=== PATIENT | male | born 1985 | race African-American/Black ===

== ENCOUNTER 2016-07-10 10:04 | Emergency (ER) | payer SELFPAY ==
[2016-07-10 10:11] VITALS: BP 146/93
[2016-07-10] MEDS ORDERED: DIPH/PERTUSS(ACELL)/TETANUS VAC/PF 0.5 ML SYR (>=10YO) IM ONE (10:31)
--- NOTE | 2016-07-10 10:36 | ER Document Report ---
HPI - HPI Patient complains to provider of: dog bite Onset: Just prior to arrival Onset/Duration: Sudden Quality of pain: No pain Pain Level: 0 Context: Patient presents to the emergency department via EMS after he was bit by a dog. He reports that he was walking down the street when a dog came out and bit him in the leg. He was carrying an umbrella and he tried to hit the dog but was unsuccessful. He reports he knows where the dog lives but had never seen the dog before. The dog did have tags. Patient tetanus is not up-to-date. Animal control contacted. Associated Symptoms: None Exacerbated by: Denies Relieved by: Denies Similar symptoms previously: No Recently seen / treated by doctor: No - DERM Skin Color: Normal Past Medical History - General Information source: Patient - Social History Smoking Status: Current Every Day Smoker Cigarette use (# per day): Yes Chew tobacco use (# tins/day): No Frequency of alcohol use: Occasional Drug Abuse: None Lives with: Family Family History: None Patient has suicidal ideation: No Patient has homicidal ideation: No - Medical History Medical History: Negative Renal/ Medical History: Denies: Hx Peritoneal Dialysis Surgical Hx: Negative Vertical Provider Document - CONSTITUTIONAL Agree With Documented VS: Yes Exam Limitations: No Limitations General Appearance: WD/WN, No Apparent Distress - INFECTION CONTROL TRAVEL OUTSIDE OF THE [place] IN LAST 30 DAYS: No - HEENT HEENT: Atraumatic - NECK Neck: Supple - RESPIRATORY Respiratory: Breath Sounds Normal, No Respiratory Distress O2 Sat by Pulse Oximetry: 97 - MUSCULOSKELETAL/EXTREMETIES Musculoskeletal/Extremeties: MAEW, FROM, Non-Tender - bite zoe noted to left lateral lower leg, pt denies pain with palpation - NEURO Level of Consciousness: Awake, Alert, Appropriate Motor/Sensory: No Motor Deficit - DERM Integumentary: Warm, Dry Adult Front & Back Diagram: 1 - Bite zoe noted to the left lower leg no active bleeding 4 teeth sarkar noted Course - Re-evaluation Re-evalutation: 07/10/16 Discussed at length the need for possible rabies vaccine. Patient declines, reports the dog did not look sick. Also reports the dog had tags and they know where the dog lives. Animal control was contacted and they did come to the hospital to discuss incident with patient. Patient was instructed on Augmentin for redness and signs and symptoms of infection. - Vital Signs Vital signs: Temp Pulse Resp BP Pulse Ox 98.3 F 101 H 18 146/93 H 97 07/10/16 10:10 07/10/16 10:10 07/10/16 10:10 07/10/16 10:10 07/10/16 10:10 Discharge - Discharge Clinical Impression: Dog bite of left lower leg, Elevated blood pressure reading Condition: Stable Disposition: HOME, SELF-CARE Instructions: Animal Bites (OM), Tetanus Immunization Given (OM), Augmentin ( OM), Acetaminophen Additional Instructions: *You have been treated for post animal bite *Take medication as prescribed *Monitor the site for signs of infection such as increasing pain, redness, swelling, warmth *Keep the area clean *Follow up with animal control to ensure dog has had their vaccines *Follow up with a primary care provider within 5 days for recheck *Return to ED for signs of infection, worsening condition, changes, needs Monitor your blood pressure. Your blood pressure was elevated today. This may be because you were anxious, in pain or because you need medication. It is important to follow up with your primary care provider for full evaluation. Prescriptions: Amoxicillin/Potassium Clav [Augmentin 875-125 Tablet] 1 each PO BID #20 tablet Forms: Elevated Blood Pressure
== END 2016-07-10 11:16 | disposition home or self-care (01) ==
LOC: ER 10:04
DX: S81.859A Open bite, unspecified lower leg, initial encounter (principal); R03.0 Elevated blood-pressure reading, without diagnosis of hypertension; F17.210 Nicotine dependence, cigarettes, uncomplicated; W54.0XXA Bitten by dog, initial encounter
CPT/HCPCS: 90471; 90715; 99283